=== PATIENT | male | born 1980 | race Caucasian/White ===

== ENCOUNTER 2017-11-10 21:35 | Emergency (ER) | payer OTHER ==
--- NOTE | 2017-11-10 21:45 | CPEKG ---
Heart Rate: 97 RR Interval: 619 P-R Interval: 148 QRSD Interval: 102 QT Interval: 336 QTC Interval: 427 P [place]: 81 QRS [place]: 235 T Wave [place]: 25 EKG Severity - BORDERLINE ECG - EKG Impression: SINUS RHYTHM EKG Impression: MARKEDLY POSTERIOR QRS AXIS Electronically Signed By: Sanjay Blue 11-Nov-2017 10:34:10
[2017-11-10] MEDS ORDERED: NS 1,000 ML IV ONE (21:55)
[2017-11-10] MEDS ORDERED: ONDANSETRON 4 MG/2 ML VIAL IVP ONE (21:55)
[2017-11-10] MEDS ORDERED: ONDANSETRON 4 MG/2 ML VIAL ONE (21:56)
[2017-11-10 22:00] LABS: PLATELET COUNT 225 10^3/uL (150-400)
[2017-11-10 22:11] VITALS: RESP 18
--- NOTE | 2017-11-10 22:33 | EDPHY ---
H & P Smoking Status: Never smoked Time Seen by Provider: 11/10/17 22:00 HPI/ROS: CHIEF COMPLAINT: Near-syncope, chest pain HISTORY OF PRESENT ILLNESS: 37-year-old male presents to the emergency department after having a near syncopal episode. The patient was walking around a corner with his family and had pain in his chest. He denies shortness of breath. Specifically he denies pleuritic chest pain. Denies fevers or chills. No URI symptoms. No vomiting. No diarrhea. He did feel nauseous. He does not drink alcohol or abuse drugs. He does not smoke cigarettes. REVIEW OF SYSTEMS: Constitutional: No fever, no chills. Eyes: No double or blurry vision. ENT: No sore throat. Respiratory: No cough, no shortness of breath. Cardiac: As above Gastrointestinal: No abdominal pain, vomiting or diarrhea. Genitourinary: No dysuria. Musculoskeletal: No neck or back pain. Skin: No rashes. Neurological: No headache. (Anai Haynes) Past Medical/Surgical History: Negative (Anai Haynes) Social History: (Anai Haynes) Physical Exam: General Appearance: Alert, no distress. Vital signs are stable. Eyes: Pupils equal and round. Extraocular motions are all intact. ENT: Mouth: Mucous membranes moist. Respiratory: No wheezing, rhonchi, or rales, lungs are clear to auscultation. Cardiovascular: Regular rate and rhythm. Gastrointestinal: Abdomen is soft and nontender, no masses, no rebound or guarding, bowel sounds normal. Neurological: Alert and oriented x 3, cranial nerves II through XII grossly intact Skin: Warm and dry, no rashes. Musculoskeletal: Nontender to palpate along the cervical, thoracic or lumbar spine. Neck is supple. Extremities: Full range of motion and no peripheral edema. Psychiatric: Patient is oriented X 3, there is no agitation. (Anai Haynes) Constitutional: Initial Vital Signs Temperature (C) 37.2 C 11/10/17 21:38 Heart Rate 103 H 11/10/17 21:38 Respiratory Rate 20 11/10/17 21:38 Blood Pressure 152/83 H 11/10/17 21:38 O2 Sat (%) 97 11/10/17 21:38 O2 Delivery Mode Room Air Allergies/Adverse Reactions: No Known Allergies Allergy (Unverified 11/10/17 21:37) Home Medications: Medication Instructions Recorded NK [No Known Home Meds] 11/10/17 Medical Decision Making - Diagnostics Imaging: I viewed and interpreted images myself - Diagnostics EKG Interpretation: EKG revealed normal sinus rhythm. See interpretation in trace master by Dr. Kristi Paniagua. (Anai Haynes) ED Course/Re-evaluation: 37-year-old male presents to the emergency department feeling lightheaded and having pain in his chest. The case was discussed with Dr. Kristi Paniagua, secondary supervising physician, who also evaluated the patient. Patient's perc score is 0. I do not think this patient has a pulmonary embolism. He denies pleuritic chest pain. He is not short of breath. D-dimer is negative. EKG reveals normal sinus rhythm. Laboratory studies including troponin is negative. Chest x-rays unremarkable. Patient was reassured. He is comfortable being discharged home. (Anai Haynes) I have evaluated and participated in the management of this patient. My co- signature indicates that I have reviewed this chart and that I agree with the findings and the plan of care as documented. My personal history and physical findings include: Healthy 37-year-old male who presents with lightheadedness and intermittent episodes of midepigastric/low substernal chest pain. He has also had increased burping recently. He cannot identify any activities that bring on this discomfort. There is no radiation of the pain. It is not associated with nausea. He does not feel short of breath. He has not fainted but felt presyncopal earlier this evening. No significant family history of coronary artery disease. No personal risk factors for coronary artery disease. On exam he is awake alert and appropriate. Lungs are clear to auscultation. Heart has a regular rate and rhythm without murmur, rub, or gallop. Abdomen is soft, nontender, and nondistended. I reviewed his EKG, chest x-ray, and laboratory values. I suspect GERD. He does take Pepcid. I doubt coronary artery disease. His HEART score is 0. I feel that he can safely be discharged home to follow up with the primary care physician. (Kristi Paniagua) Differential Diagnosis: Chest pain including but not limited to myocardial ischemia, pulmonary embolus, chest wall pain, pleural inflammation and pulmonary infectious causes. (Anai Haynes) - Data Points Laboratory Results: Laboratory Results 11/10/17 21:50 11/10/17 21:50 Medications Given: Discontinued Medications Sodium Chloride (Ns) 1,000 mls @ 0 mls/hr IV ONCE ONE PRN Reason: Wide Open Stop: 11/10/17 21:56 Last Admin: 11/10/17 21:59 Dose: 1,000 mls Ondansetron HCl (Zofran) 4 mg IVP EDNOW ONE Stop: 11/10/17 21:56 Last Admin: 11/10/17 21:58 Dose: 4 mg Departure - Departure Disposition: Home, Routine, Self-Care Clinical Impression: Chest pain Condition: Good Instructions: Chest Pain (ED) Additional Instructions: Return to the emergency department if he developed recurring chest pain, shortness of breath, or if you feel worse in any way. Referrals: Pérez Salcedo, DO [Primary Care Provider] - 1-2 days without fail
[2017-11-10 23:06] VITALS: BP 123/79; PULSE 78; TEMP 98.2; O2SAT 97
--- NOTE | 2017-11-11 09:59 | CPEKG ---
Heart Rate: 83 RR Interval: 723 P-R Interval: 156 QRSD Interval: 108 QT Interval: 372 QTC Interval: 437 P [place]: 76 QRS [place]: -80 T Wave [place]: 18 EKG Severity - ABNORMAL ECG - EKG Impression: SINUS RHYTHM EKG Impression: LAD, CONSIDER LEFT ANTERIOR FASCICULAR BLOCK Electronically Signed By: Sanjay Blue 11-Nov-2017 10:34:38
== END 2017-11-10 23:06 | disposition home or self-care (01) ==
DX: R07.9 Chest pain, unspecified (principal)
CPT/HCPCS: 96374; J2405